=== PATIENT | female | born 1990 | race Caucasian/White ===

== ENCOUNTER 2020-11-11 15:33 | Emergency (ER) | payer OTHER ==
[~2020-11-11] VITALS: Ht 172.7 cm; Wt 67.6 kg
[2020-11-11] MEDS ORDERED: CELE1CAP9 PO (15:47)
[2020-11-11] MEDS ORDERED: METH1TAB40 PO (15:47)
[2020-11-11] MEDS ORDERED: BACL1TAB9 PO (15:47)
[2020-11-11] MEDS ORDERED: NAPR500T6 PO (15:47)
[2020-11-11] MEDS ORDERED: METH4TAB8 PO (15:47)
[2020-11-11] MEDS ORDERED: KETOROLAC 30 MG/ML 1ML VIAL IV ONE (16:30)
[2020-11-11] MEDS ORDERED: NS 1,000 ML IV ONE (16:30)
--- NOTE | 2020-11-11 16:52 | REP ---
INDICATION: lower leg pain COMPARISON: None. TECHNIQUE: AP, lateral views of the right tibia/fibula. FINDINGS: The osseous structures and joint spaces are intact and normal. There is no evidence for acute fracture or dislocation. Surrounding soft tissues are unremarkable. No subcutaneous emphysema or radiodense foreign body. IMPRESSION: Normal right tibia/fibular radiographs. <Electronically signed by Urbano Monk > 11/11/20 [id number]
--- NOTE | 2020-11-11 17:00 | REP ---
INDICATION: lower leg pain COMPARISON: None. TECHNIQUE: [place] scale and color Doppler evaluation using linear high frequency transducer. FINDINGS: Ultrasound examination of the right lower extremity deep venous structures from the common femoral vein to the popliteal vein demonstrates normal compressibility flow and wave patterns in response to respiration and augmentation. There is no evidence for deep venous thrombosis. IMPRESSION: No evidence for deep venous thrombosis. <Electronically signed by Urbano Monk > 11/11/20 [id number]
[2020-11-11 17:30] LABS: BASO % 0.2 % (0.0-1.0); HEMATOCRIT 44.9 % (36.0-47.0); HEMOGLOBIN 14.3 g/dl (12.0-15.5); LYMPH # 1.9 10^3/uL (1.5-5.0); LYMPH % 14.7 % (24.0-44.0); MEAN CORPUSCULAR HEMOGLOBIN 29.7 pg (27.0-33.0); MEAN CORPUSCULAR HGB CONC 31.8 g/dl (32.0-36.5); MEAN CORPUSCULAR VOLUME 93.3 fl (80.0-96.0); MONO # 0.6 10^3/uL (0.0-0.8); MONO % 4.8 % (0.0-5.0); NEUTROPHILS # 10.3 10^3/uL (1.5-8.5); NEUTROPHILS % 80.1 % (36.0-66.0); PLATELET COUNT, AUTOMATED 250 10^3/uL (150-450); RED BLOOD COUNT 4.81 10^6/uL (4.00-5.40); WHITE BLOOD COUNT 12.8 10^3/uL (4.0-10.0)
[2020-11-11 17:40] LABS: HCG, SERUM QUALITATIVE NEGATIVE (NEGATIVE)
[2020-11-11 17:56] LABS: BLOOD UREA NITROGEN 16 MG/DL (7-18); CALCIUM LEVEL 9.4 MG/DL (8.5-10.1); CARBON DIOXIDE LEVEL 28 MEQ/L (21-32); CHLORIDE LEVEL 103 MEQ/L (98-107); CPK CREATINE PHOSPHOKINASE 160 U/L (26-192); CREATININE FOR GFR 0.75 MG/DL (0.55-1.30); FREE THYROXINE INDEX 2.9 % (1.3-4.8); GLOMERULAR FILTRATION RATE > 60.0 (>60); GLUCOSE, FASTING 81 MG/DL (70-100); MAGNESIUM LEVEL 2.1 MG/DL (1.8-2.4); SODIUM LEVEL 139 MEQ/L (136-145); T UPTAKE 34 % (30-39); THYROID STIMULATING HORMONE 0.527 uIU/ML (0.358-3.740); THYROXINE (T4) 8.6 UG/DL (4.5-12.0)
[2020-11-11 18:02] LABS: ERYTHROCYTE SEDIMENTATION RATE 2 mm/hr (0-20)
[2020-11-11] MEDS ORDERED: ISOVUE-370 76% 100ML VIAL As Ordered ONE (18:43)
[2020-11-11] MEDS ORDERED: MORPHINE 4 MG/ML 1ML VIAL/SYRINGE (J2270) IV ONE (18:45)
[2020-11-11] MEDS ORDERED: fentaNYL 100 MCG/2 ML INJECTION (J3010) IV ONE (20:00)
--- NOTE | 2020-11-11 20:24 | REPVR ---
PROCEDURE INFORMATION: Exam: CTA Right Lower Extremity With Contrast Exam date and time: 11/11/2020 6:51 PM Age: 30 years old Clinical indication: Pain; Multiple sites; Bilateral; Additional info: Pain out of proportion lower leg, pain dorsiflex, knee ext. TECHNIQUE: Imaging protocol: CTA images of the Right lower extremity with intravenous contrast using CT angiography protocol. 3D rendering (Not supervised by radiologist): MIP and/or 3D reconstructed images were created and reviewed. COMPARISON: CR Tibia, Fibula lower leg 11/11/2020 4:30 PM FINDINGS: Right femoral/popliteal arteries: No occlusion or significant stenosis. Right infrapopliteal arteries: No occlusion or significant stenosis. Other arteries: There is poor enhancement of the arteries of the foot, which is symmetric bilaterally. This can be contributed by the timing of injection or due to significant decreased flow. No significant stenosis or occlusion of the iliac arteries. Reproductive: Within the right ovary, there is a hypodense cyst measuring 2.3 x 1.8 cm. A dominant follicle or small cyst is seen within the left ovary. Bones/joints: No acute fracture or dislocation of the right lower extremity, as visualized. The forefoot extends out of the field of view of this study. Soft tissues: Unremarkable. Other findings: Evaluation of ligaments, tendons, menisci, and labrum is suboptimal on CT. IMPRESSION: 1. There is poor enhancement of the arteries of the foot, which is symmetric bilaterally. This can be contributed by the timing of injection or due to significant decreased flow. Clinical correlation and possible arterial ultrasound recommended. 2. No acute fracture or dislocation of the right lower extremity, as visualized. 3. Within the right ovary, there is a hypodense cyst measuring 2.3 x 1.8 cm. A dominant follicle or small cyst is seen within the left ovary. This can be further evaluated with ultrasound. PROCEDURE INFORMATION: Exam: CTA Left Lower Extremity With Contrast Exam date and time: 11/11/2020 6:51 PM Age: 30 years old Clinical indication: Pain; Multiple sites; Bilateral; Additional info: Pain out of proportion lower leg, pain dorsiflex, knee ext. TECHNIQUE: Imaging protocol: Computed tomographic angiography of the Left lower extremity with intravenous contrast. 3D rendering (Not supervised by radiologist): MIP and/or 3D reconstructed images were created by the technologist. Radiation optimization: All CT scans at this facility use at least one of these dose optimization techniques: automated exposure control; mA and/or kV adjustment per patient size (includes targeted exams where dose is matched to clinical indication); or iterative reconstruction. Contrast material: ISOVUE 370; Contrast volume: 100 ml; Contrast route: INTRAVENOUS (IV); COMPARISON: CR Tibia, Fibula lower leg 11/11/2020 4:30 PM FINDINGS: Left femoral/popliteal arteries: No occlusion or significant stenosis. Left infrapopliteal arteries: No occlusion or significant stenosis. Other arteries: There is poor enhancement of the arteries of the foot, which is symmetric bilaterally. This can be contributed by the timing of injection or due to significant decreased flow. No significant stenosis or occlusion of the iliac arteries. Reproductive: Within the right ovary, there is a hypodense cyst measuring 2.3 x 1.8 cm. A dominant follicle or small cyst is seen within the left ovary. Bones/joints: No acute fracture or dislocation of the left lower extremity, as visualized. The forefoot extends out of the field of view of this study. Minimal left patellofemoral joint effusion. Soft tissues: Unremarkable. Other findings: Evaluation of ligaments, tendons, menisci, and labrum is suboptimal on CT. IMPRESSION: 1. There is poor enhancement of the arteries of the foot, which is symmetric bilaterally. This can be contributed by the timing of injection or due to significant decreased flow. Clinical correlation and possible arterial ultrasound recommended. 2. No acute fracture or dislocation of the left lower extremity, as visualized. 3. Within the right ovary, there is a hypodense cyst measuring 2.3 x 1.8 cm. A dominant follicle or small cyst is seen within the left ovary. This can be further evaluated with ultrasound. 4. Minimal left patellofemoral joint effusion. Electronically signed by: Rakan Castellanos On 11/11/2020 20:24:36 PM
[2020-11-11 21:23] VITALS: BP 110/66
[2020-11-12 13:27] LABS: PTH INTACT 20.6 PG/ML (18.5-88.0)
== END 2020-11-11 21:27 | disposition home or self-care (01) ==
LOC: M ED 15:33
DX: M79.661 Pain in right lower leg (principal); D72.829 Elevated white blood cell count, unspecified; F17.210 Nicotine dependence, cigarettes, uncomplicated
CPT/HCPCS: 73590; 73706; 80048; 82550; 83735; 83970; 84436; 84443; 84479; 84703; 85025; 85652; 86140; 93971; 96361; 96374; 96375; 99284; J1885; J2270; J3010; Q9967